=== PATIENT | female | born 1970 | race Caucasian/White ===

== ENCOUNTER 2020-12-31 10:57 | Emergency (ER) | payer OTHER ==
[~2020-12-31] VITALS: Ht 154.9 cm; Wt 120.2 kg
[2020-12-31 13:30] LABS: HEMOGLOBIN 12.4 gm/dl (12.3-15.3); RED BLOOD COUNT 5.09 M/UL (4.00-5.10); WHITE BLOOD COUNT 7.5 K/UL (4.5-11.0)
[2020-12-31 13:56] LABS: BUN/CREATININE RATIO 8 (0-10)
[2020-12-31] MEDS ORDERED: AUGMENTIN 875-1 EACH PO (20:23)
[2020-12-31] MEDS ORDERED: ZOFRAN ODT 4 MG4 MG SL (20:23)
== END 2020-12-31 20:45 | disposition home or self-care (01) ==
LOC: ER1 10:57
PROVIDERS: Internal Medicine
DX: B34.9 Viral infection, unspecified (principal); H60.92 Unspecified otitis externa, left ear; I10 Essential (primary) hypertension; Z88.2 Allergy status to sulfonamides; Z20.822 Contact with and (suspected) exposure to COVID-19
CPT/HCPCS: 0240U; 71045; 80053; 81001; 83605; 83690; 84703; 85025; 87040; 87081; 87086; 87880; 96374; 99284; J2405; J7030; Q9967

== ENCOUNTER 2021-02-06 11:09 | Observation (INO) | payer OTHER ==
[~2021-02-06] VITALS: Ht 154.9 cm; Wt 121.6 kg
[~2021-02-06 11:09] MED LIST: AUGMENTIN 875-1 EACH PO; ZOFRAN ODT 4 MG4 MG SL
[2021-02-06 12:27] LABS: HEMOGLOBIN 11.3 gm/dl (12.3-15.3); RED BLOOD COUNT 4.65 M/UL (4.00-5.10); WHITE BLOOD COUNT 8.7 K/UL (4.5-11.0)
[2021-02-06 12:56] LABS: BUN/CREATININE RATIO 20 (0-10)
[2021-02-06] MEDS ORDERED: CLARITIN 10MG T10 MG PO (14:01)
[2021-02-06] MEDS ORDERED: VALSARTAN-HCTZ1 EACH PO (14:01)
[2021-02-06] MEDS ORDERED: IBU800 MG PO (14:20)
[2021-02-06] MEDS ORDERED: TYLENOL325 MG PO (14:21)
[2021-02-07 02:05] LABS: HEMOGLOBIN 10.4 gm/dl (12.3-15.3); RED BLOOD COUNT 4.27 M/UL (4.00-5.10); WHITE BLOOD COUNT 9.2 K/UL (4.5-11.0)
[2021-02-07 03:46] LABS: BUN/CREATININE RATIO 15 (0-10)
[2021-02-07] MEDS ORDERED: ASPIRIN EC81 MG PO (09:38)
[2021-02-07] MEDS ORDERED: ISOSORBIDE MONO30 MG PO (09:38)
[2021-02-07] MEDS ORDERED: NITROGLYCERIN0.4 MG SL (09:38)
[2021-02-07] MEDS ORDERED: VALSARTAN320 MG PO (11:25)
[2021-02-07] MEDS ORDERED: HYDROCHLOROTHIA25 MG PO (11:25)
== END 2021-02-07 14:05 | disposition home or self-care (01) ==
LOC: ER1 11:09 → CDU 13:33 → PROG CARE 17:41
PROVIDERS: Physician Assistant; Physician Assistant Medical; ADMIT Internal Medicine
DX: I25.110 Atherosclerotic heart disease of native coronary artery with unstable angina pectoris (principal); I11.9 Hypertensive heart disease without heart failure; R94.31 Abnormal electrocardiogram [ECG] [EKG]; E66.01 Morbid (severe) obesity due to excess calories; I07.1 Rheumatic tricuspid insufficiency; I27.20 Pulmonary hypertension, unspecified; K21.9 Gastro-esophageal reflux disease without esophagitis; G43.909 Migraine, unspecified, not intractable, without status migrainosus; Z79.899 Other long term (current) drug therapy; Z68.43 Body mass index [BMI] 50.0-59.9, adult; Z20.822 Contact with and (suspected) exposure to COVID-19; Z90.49 Acquired absence of other specified parts of digestive tract; Z88.1 Allergy status to other antibiotic agents; Z82.49 Family history of ischemic heart disease and other diseases of the circulatory system; Z87.442 Personal history of urinary calculi
CPT/HCPCS: ECHO; 36415; 71045; 80048; 80053; 80061; 82550; 82553; 83735; 83874; 84484; 85025; 85027; 93005; 93306; 99152; 99153; 99285; C1769; C1887; C1894; G0378; J1644; J2250; J3010; J7030; Q9967; U0002

== ENCOUNTER 2021-09-06 09:07 | Emergency (ER) | payer SELFPAY ==
[~2021-09-06 09:07] MED LIST changes: +ASPIRIN EC81 MG PO; +CLARITIN 10MG T10 MG PO; +HYDROCHLOROTHIA25 MG PO; +IBU800 MG PO; +ISOSORBIDE MONO30 MG PO; +NITROGLYCERIN0.4 MG SL; +TYLENOL325 MG PO; +VALSARTAN-HCTZ1 EACH PO; +VALSARTAN320 MG PO
[2021-09-06 10:16] LABS: HEMOGLOBIN 13.5 gm/dl (12.3-15.3); RED BLOOD COUNT 5.34 M/UL (4.00-5.10); WHITE BLOOD COUNT 4.7 K/UL (4.5-11.0)
[2021-09-06 13:07] LABS: BUN/CREATININE RATIO 18 (0-10)
[2021-09-06] MEDS ORDERED: AUGMENTIN 875-1 EACH PO (17:20)
[2021-09-06] MEDS ORDERED: ZOFRAN ODT 4 MG4 MG PO (17:20)
== END 2021-09-06 18:00 | disposition home or self-care (01) ==
LOC: ER1 09:07
PROVIDERS: Emergency Medicine
DX: K52.9 Noninfective gastroenteritis and colitis, unspecified (principal); E86.0 Dehydration; K76.0 Fatty (change of) liver, not elsewhere classified; I10 Essential (primary) hypertension
CPT/HCPCS: 80053; 81001; 83690; 83735; 84100; 85025; 96374; 96375; 96376; 99284; C9113; J1885; J2405; J2765; J7030; Q9967